=== PATIENT | male | born 1990 | race Caucasian/White ===

== ENCOUNTER 2019-01-02 02:51 | Emergency (ER) | payer OTHER ==
[~2019-01-02] VITALS: Ht 175.3 cm; Wt 73.4 kg
[2019-01-02 02:57] VITALS: BP 127/60; PULSE 52; RESP 16; Ht 175.3 cm; Wt 73.4 kg
[2019-01-02] MEDS ORDERED: ELIM TOP (03:45)
--- NOTE | 2019-01-02 03:50 | ERD ---
ER Documentation Chief Complaint Chief Complaint bilateral leg rash, multiple bites noted x 1 day HPI 28-year-old male with medical history of HIV presents for bilateral leg rash x2 days. He states that the rash is itchy. He was seen at a clinic and was given steroid cream and Benadryl cream which she has been using without relief. Patient states that he is concerned for scabies because he has had similar symptoms about 10 years ago and states that it turned out to be scabies. He denies rash any other area besides the bilateral lower extremities. Denies fevers or chills. Denies cold symptoms. No other modifying factors noted, no other treatments tried at home. ROS All systems reviewed and are negative except as per history of present illness. Medications Home Meds Active Scripts Permethrin* (Elimite*) 5% Cr, 1 APPLIC TOP ONCE for rash, #1 TUB Prov:JESUS BARONE DO 01/02/19 Allergies Allergies: Coded Allergies: No Known Allergy (Unverified , 01/02/19) PMhx/Soc Medical and Surgical Hx: pt denies Medical Hx, pt denies Surgical Hx Hx Alcohol Use: No Hx Substance Use: No Hx Tobacco Use: No Smoking Status: Never smoker FmHx Family History: No coronary disease Physical Exam Vitals Vital Signs Date Temp Pulse Resp B/P (MAP) Pulse Ox O2 O2 Flow FiO2 Time Delivery Rate 01/02/19 98.0 52 16 127/60 98 02:57 (82) Physical Exam Const: No acute distress Head: Atraumatic Eyes: Normal Conjunctiva ENT: Normal External Ears, Nose and Mouth. Neck: Full range of motion. No meningismus. Resp: Clear to auscultation bilaterally Cardio: Regular rate and rhythm, no murmurs Skin: Bilateral lower extremity rash noted, no other rashes noted anywhere. Ext: No cyanosis, or edema Neur: Awake and alert Psych: Normal Mood and Affect Procedures/MDM Medical Decision Making: Differential diagnosis includes but not limited to dermatitis, allergic reaction, cellulitis, scabies Patient appeared well on physical exam. Physical examination consistent with dermatitis, possible allergic. Given patient's concern for scabies patient will be treated empirically, permethrin cream prescribed Patient advised to follow up with PCP in 1-2 days. Patient advised to return to ED for new or worsening symptoms. Patient stable on discharge from the ED. Disclaimer: Inadvertent spelling and grammatical errors are likely due to EHR/dictation software use and do not reflect on the overall quality of patient care. Also, please note that the electronic time recorded on this note does not necessarily reflect the actual time of the patient encounter. Departure Diagnosis: Primary Impression: Rash Condition: Fair Patient Instructions: Self-Care for Skin Rashes Referrals: [facility] YOU HAVE RECEIVED A MEDICAL SCREENING EXAM AND THE RESULTS INDICATE THAT YOU DO NOT HAVE A CONDITION THAT REQUIRES URGENT TREATMENT IN THE EMERGENCY DEPARTMENT. FURTHER EVALUATION AND TREATMENT OF YOUR CONDITION CAN WAIT UNTIL YOU ARE SEEN IN YOUR DOCTORS OFFICE WITHIN THE NEXT 1-2 DAYS. IT IS YOUR RESPONSIBILITY TO MAKE AN APPOINTMENT FOR FOLOW-UP CARE. IF YOU HAVE A PRIMARY DOCTOR --you should call your primary doctor and schedule an appointment IF YOU DO NOT HAVE A PRIMARY DOCTOR YOU CAN CALL OUR PHYSICIAN REFERRAL HOTLINE AT IF YOU CAN NOT AFFORD TO SEE A PHYSICIAN YOU CAN CHOSE FROM THE FOLLOWING [facility] [address] [facility] [facility] [address] [facility] [address] [facility] [facility] [address] [facility] [address] [facility]. [facility]. [address] Additional Instructions: Call your primary care doctor TOMORROW for an appointment during the next 1-2 days.See the doctor sooner or return here if your condition worsens before your appointment time. JESUS BARONE DO January 02, 2019 03:50
== END 2019-01-02 04:30 | disposition home or self-care (01) ==
LOC: FTE 02:51
DX: R21 Rash and other nonspecific skin eruption (principal)
CPT/HCPCS: 99282